=== PATIENT | male | born 2005 | race Hispanic/Latino ===

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

== ENCOUNTER → 2025-05-19 06:37 | Outpatient (ROUT) | payer OTHER, SELFPAY ==
[2025-05-19 07:00] LABS: Add Manual Diff / Slide Review NO; Basophils Absolute Auto 100 /uL (0-100); Basophils Percent Auto 0.9 % (0-2); Eosinophils Absolute Auto 400 /uL (0-450); Eosinophils Percent Auto 4.9 % (2-4); Hematocrit 43.2 % (41-53); Hemoglobin 14.7 g/dL (13.5-17.5); Lymphocytes Absolute Auto 3700 /uL (1100-4500); Lymphocytes Percent Auto 40.1 % (25-40); Mean Corpuscular HGB Conc 33.9 % (30-36); Mean Corpuscular Hemoglobin 31.8 PG (26-34); Mean Corpuscular Volume 93.6 fL (80-100); Monocytes Absolute Auto 600 /uL (0-900); Monocytes Percent Auto 6.3 % (3-14); Neutrophils Absolute Auto 4400 /uL (1500-7000); Neutrophils Percent Auto 47.8 % (50-75); Platelet Count 216 X10^3/uL (150-400); Red Blood Cell Count 4.62 X10^6/uL (4.5-5.9); White Blood Cell Count 9.1 X10^3/uL (4.5-11.0)
[2025-05-19 07:04] LABS: Alanine Aminotransferase 21 IU/L (<50); Albumin 5.1 g/dL (3.5-5.0); Albumin Globulin Ratio 1.9 (1.0-2.8); Alkaline Phosphatase 53 U/L (38-126); Aspartate Aminotransferase 25 IU/L (17-59); BUN Creatinine Ratio 17.1 (6-22); Blood Urea Nitrogen 14 mg/dL (9-20); Calcium 8.9 mg/dL (8.4-10.2); Carbon Dioxide 27 mmol/L (22-32); Chloride 103 mmol/L (98-107); Estimated Glomerular Filt Rate > 60 mL/min (>60); Globulin 2.7 g/dL (1.7-4.1); Glucose 81 mg/dL (70-99); HEMOLYSIS < 15 (0-50); Potassium 3.6 mmol/L (3.4-5.1); Sodium 141 mmol/L (137-145); Total Protein 7.8 g/dL (6.3-8.2)
[2025-05-19 07:35] LABS: TSH w/ Reflex to FT4 2.54 uIU/mL (0.47-4.68)
[2025-05-19 07:40] LABS: Ferritin 81 ng/mL (18-464)
[2025-05-19 07:42] LABS: Vitamin D 25 Hydroxy (D3) 16.7 ng/mL (30.0-100.0)
== END ==
PROVIDERS: Visit Provider Pediatrics
DX: G47.00 Insomnia, unspecified (principal); R63.4 Abnormal weight loss
CPT/HCPCS: 80053; 82306; 82728; 84443; 85025